=== PATIENT | male | born 1945 | race Caucasian/White ===

== ENCOUNTER 2018-07-29 10:25 | Emergency (ER) | payer MEDICARE, OTHER ==
[2018-07-29 11:11] VITALS: BP 133/53
--- NOTE | 2018-07-29 11:51 | UC ---
Respiratory Complaint HPI - HPI Summary HPI Summary: Increased cough since yesterday. Flu shot obtained this fall. He was admitted to [facility] a few weeks ago for copd exacerbation. NO fever in the last few days nor myalgias. He is on 2-3 liters NC and today he has been comfortable at 2 liters. He says his had this same URI last week. 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 Negative: Dyspnea, Fever, Chills, Pleuritic Chest Pain, Hemoptysis, Calf Pain, Calf Swelling - Allergies/Home Medications Allergies/Adverse Reactions: Allergies Allergy/AdvReac Type Severity Reaction Status Date / Time iodine Allergy Airway Verified 07/29/18 11:12 Obstruction shellfish derived Allergy Airway Verified 07/29/18 11:12 Obstruction Home Medications: Home Medications Aspirin [Aspir-Low] 81 mg PO DAILY 07/29/18 [History Confirmed 07/29/18] Atorvastatin* [Lipitor*] 40 mg PO 1700 07/29/18 [History Confirmed 07/29/18] Bumetanide TAB* [Bumex 1 MG TAB*] 1 mg PO DAILY 07/29/18 [History Confirmed ] Carvedilol TAB* [Coreg TAB*] 3.125 mg PO BID 07/29/18 [History Confirmed ] Cholecalciferol TAB* [Vitamin D TAB*] 1,000 unit PO DAILY 07/29/18 [History Confirmed 07/29/18] Clopidogrel TAB* [Plavix TAB*] 75 mg PO DAILY 07/29/18 [History Confirmed ] FLUoxetine CAP* [PROzac CAP*] 20 mg PO DAILY 07/29/18 [History Confirmed ] Gabapentin 300 mg PO TID 07/29/18 [History Confirmed 07/29/18] Iron 90 mg PO DAILY 07/29/18 [History Confirmed 07/29/18] Lisinopril 40 mg PO DAILY 07/29/18 [History Confirmed 07/29/18] Ropinirole TAB* [Requip TAB*] 0.5 mg PO BEDTIME 07/29/18 [History Confirmed ] Tiotropium CAP.INH* [Spiriva CAP.INH*] 1 cap.inh INH DAILY 07/29/18 [History Confirmed 07/29/18] PMH/Surg Hx/FS Hx/Imm Hx Previously Healthy: No - COPD. Heart disease. - Surgical History Surgical History: Yes Surgery Procedure, Year, and Place: cardiac bypass, aortic valve replaced x 3, bi-lateral ingunal hernias - Family History Known Family History: Positive: Non-Contributory - Social History Lives: With Family Alcohol Use: None Substance Use Type: None Smoking Status (MU): Never Smoked Tobacco Review of Systems All Other Systems Reviewed And Are Negative: Yes Constitutional: Positive: Negative Respiratory: Positive: Cough - Mainly dry. No hemoptysis. Cardiovascular: Positive: Negative, Chest Pain. Negative: Palpitations Physical Exam Triage Information Reviewed: Yes Appearance: Well-Appearing - Comfortable and pleasant but appears mildly chronically ill with O2NC. He has no cough or tachypnea during my exam., No Pain Distress, Well-Nourished Vital Signs: Initial Vital Signs Temp 98 F 07/29/18 10:59 Pulse 60 07/29/18 10:59 Resp 28 07/29/18 10:59 BP 133/53 07/29/18 10:59 Pulse Ox 95 07/29/18 10:59 Vital Signs Reviewed: Yes Eyes: Positive: Conjunctiva Clear. Negative: Conjunctiva Inflamed ENT: Positive: Hearing grossly normal, Pharynx normal, TMs normal, Uvula midline. Negative: Pharyngeal erythema, Nasal congestion, Nasal drainage Neck: Positive: Supple, Nontender, No Lymphadenopathy Respiratory Exam: Other - Ambulates upon discharge without obvious GILLESPIE or weakness or need of any help. Respiratory: Positive: Chest non-tender, Lungs clear, Normal breath sounds, No respiratory distress, No accessory muscle use. Negative: Respiratory distress, Decreased breath sounds, Accessory muscle use, Crackles, Rhonchi, Stridor Cardiovascular: Positive: No Murmur. Negative: Tachycardia, Bradycardia Abdomen Description: Positive: Soft. Negative: Distended, Guarding Musculoskeletal: Positive: Strength Intact, ROM Intact. Negative: No Edema Neurological: Positive: Alert, Muscle Tone Normal. Negative: Fatigued Psychological: Positive: Age Appropriate Behavior. Negative: Abnormal Response To Family Skin: Negative: Rashes UC Diagnostic Evaluation - Laboratory O2 Sat by Pulse Oximetry: 95 Respiratory Course/Dx - Differential Dx/Diagnosis Differential Diagnosis/HQI/PQRI: Exacerbation Of COPD Provider Diagnosis: COPD exacerbation, URI (upper respiratory infection) Discharge - Sign-Out/Discharge Documenting (check all that apply): Patient Departure All imaging exams completed and their final reports reviewed: No Studies - Discharge Plan Condition: Good Disposition: HOME Prescriptions: Levofloxacin TAB* [Levaquin 500 Tab*] 500 mg PO DAILY #7 tab predniSONE TAB* [Deltasone 20 MG TAB*] 40 mg PO DAILY #14 tab Patient Education Materials: COPD (Chronic Obstructive Pulmonary Disease) (ED) Referrals: No Primary Care Phys,NOPCP [Primary Care Provider] - Additional Instructions: Go to ED for any worsening. - Billing Disposition and Condition Condition: GOOD Disposition: Home
== END 2018-07-29 11:43 | disposition home or self-care (01) ==
LOC: UCCORT 10:25
DX: J06.9 Acute upper respiratory infection, unspecified (principal); J44.1 Chronic obstructive pulmonary disease with (acute) exacerbation; I51.9 Heart disease, unspecified; Z95.1 Presence of aortocoronary bypass graft; Z95.2 Presence of prosthetic heart valve
CPT/HCPCS: 99212; G0463